=== PATIENT | female | born 1985 | race African-American/Black ===

== ENCOUNTER 2023-07-12 02:01 | Emergency (ER) | payer MEDICAID ==
[~2023-07-12] VITALS: Ht 162.6 cm; Wt 59.0 kg
[2023-07-12 02:03] VITALS: BP 108/57; PULSE 68; RESP 18; O2SAT 99
[2023-07-12 02:15] VITALS: TEMP 98.4
[2023-07-12] MEDS: ACETAMINOPHEN 325MG TABLET PO ONE (02:15)
== END 2023-07-12 03:09 | disposition left against medical advice (07) ==
LOC: ER 02:01
DX: M25.551 Pain in right hip (principal); Z53.21 Procedure and treatment not carried out due to patient leaving prior to being seen by health care provider; Z00.00 Encounter for general adult medical examination without abnormal findings
CPT/HCPCS: 99283

== ENCOUNTER 2024-02-24 08:03 | Emergency (ER) | payer MEDICAID ==
[~2024-02-24] VITALS: Ht 165.1 cm; Wt 75.0 kg
[2024-02-24 08:05] VITALS: BP 140/84; PULSE 74; RESP 16; TEMP 97.7; O2SAT 98
[2024-02-24] MEDS: IBUPROFEN 600MG TABLET PO ONE (09:37)
[2024-02-24] MEDS ORDERED: IBUP-2029 MT (11:24)
== END 2024-02-24 11:45 | disposition home or self-care (01) ==
LOC: ER 08:09
DX: S63.502A Unspecified sprain of left wrist, initial encounter (principal); X58.XXXA Exposure to other specified factors, initial encounter; Y93.89 Activity, other specified; Y92.89 Other specified places as the place of occurrence of the external cause; Y99.8 Other external cause status
CPT/HCPCS: 73110; 99283

== ENCOUNTER 2024-02-25 00:30 | Emergency (ER) | payer MEDICAID ==
[~2024-02-25] VITALS: Ht 160 cm; Wt 57.0 kg
[~2024-02-25 00:30] MED LIST: IBUP-2029 MT
[2024-02-25 00:53] VITALS: BP 114/61; PULSE 83; RESP 16; O2SAT 100
[2024-02-25 02:41] VITALS: TEMP 98.5
[2024-02-25] MEDS: ACETAMINOPHEN 325MG TABLET PO ONE (02:41)
== END 2024-02-25 05:00 | disposition home or self-care (01) ==
LOC: ER 00:30
DX: M25.531 Pain in right wrist (principal); M25.532 Pain in left wrist
CPT/HCPCS: 73110; 99283